=== PATIENT | female | born 1955 | race Caucasian/White ===

== ENCOUNTER 2022-04-07 12:55 | Observation (INO) ==
[2022-04-07] MEDS ORDERED: KETOROLAC TROMETHAMINE 15 MG/ML VIAL IV STA ×2 (14:38→14:59)
[2022-04-07] MEDS ORDERED: SODIUM CHLORIDE 0.9% 1000ML 1,000 ML IV ONE (14:38)
[2022-04-07] MEDS ORDERED: ACETAMINOPHEN 1,000 MG/100 ML VIAL IV STA (14:38)
[2022-04-07] MEDS ORDERED: SODIUM CHLORIDE 0.9% 1000ML 1,000 ML IV STA (14:59)
[2022-04-07] MEDS ORDERED: ONDANSETRON INJ 2 MG/ML 2 ML VIAL IV STA ×2 (14:59→20:18)
--- NOTE | 2022-04-07 15:04 | Emergency Department Note ---
Impression & Plan Strain of lumbar region, Acute Lyme disease ED Provider Note NAME: YIFAN YANG AGE: 66 SEX: F : 1955 ARRIVES VIA: Walk-In INFORMANT: Patient, ED PROVIDER(S): Jorge Benitez DO CHIEF COMPLAINT: Back pain HPI: The patient is a 66-year-old female who presented to the emergency department as a follow-up from last evening. The patient was seen in our facility. She was treated for left-sided back pain. She was noted to have a large rash and at that time was diagnosed with Lyme disease after laboratory testing confirmed a positive screen for Lyme in the patient's history physical exam and other findings seem to be consistent with this. She is been having some symptoms over the course the last few weeks which began with headache. It was a sharp lancinating type of headache on the right side of the scalp. She was treated with steroids and was feeling much better on reevaluation. She then started noticing back pain which was in the left flank. She had a work-up which included a plain CT of the abdomen and pelvis to look for renal calculi. There is an abnormality noted on the CT in the liver so a repeat scan with IV contrast was also done. No acute abnormality was noted that would explain the patient's back pain. Specifically no bowel obstruction. She returns with her daughter today because of worsening and ongoing pain. She has been taking her outpatient medication. She denies having any vomiting. She denies having any headache at this time. She denies having any chest pain or difficulty breathing. The pain is over the left flank and does not worsen with breathing. She does not have a history of cancer. She has had some weight loss according to her daughter. ROS: See above HPI for pertinent positives & negatives. A total of 10 systems re viewed and were otherwise negative. PAST MEDICAL HISTORY: See Below PAST SURGICAL HISTORY: See Below FAMILY HISTORY: See Below SOCIAL HISTORY: See Below HOME MEDICATIONS: See Below ALLERGIES: See Below VITALS: See Below PHYSICAL EXAMINATION: GENERAL: Is awake and alert. She appears to be very anxious and is walking around the room because of discomfort. EYES: The conjunctivae are clear. The pupils are round and reactive. EARS, NOSE, MOUTH AND THROAT: The nose is without any evidence of any deformity. NECK: The neck is nontender and supple. RESPIRATORY: Normal respiratory effort is noted there is no evidence of wheezing rhonchi or rales CARDIOVASCULAR: Regular rate and rhythm noted there no murmurs rubs or gallops normal S1 normal S2. GASTROINTESTINAL: The abdomen is soft. Abdomen is nontender. BACK: No midline tenderness noted to percussion. There was left CVA tenderness noted to percussion. Range of motion does appear intact. MUSCULOSKELETAL/EXTREMITIES: There is no evidence of gross deformity full range of motion is noted in the hips and shoulders. SKIN: Multiple large target-like lesions were noted over the left flank and the left upper abdomen. There is no pedal edema. NEUROLOGIC: Patient is awake alert and oriented x3 strength is symmetric patellar reflexes are 2+ bilaterally MEDICAL DECISION MAKING: The patient is a 66-year-old female who presented to the emergency department for an evaluation of back pain. The patient describes left-sided back pain which was reproducible on physical exam. The patient was treated with pain m edication. She was reevaluated multiple times. She was very concerned that there could be some other pathology other than the Lyme disease that was diagnosed last evening. For this reason MRI was obtained of the thoracic and lumbar spine. No acute disease was noted that would explain the patient's pain. The patient appeared to be in significant pain ongoing despite being treated with multiple doses of pain medication. For this reason I [facility] have agreed to evaluate the patient in the emergency department for further management and disposition. Triage Nursing notes reviewed. Prior medical records reviewed Vital Signs: reviewed and remarkable for no significant abnormalities Differential diagnosis: Musculoskeletal, disc herniation, fracture, metastatic disease, cord compression, discitis, sciatica, cauda equina, infection, aortic disease, renal colic, gastrointestinal, as well as other pathologies. ER treatment provided: See below Diagnostics interpreted by me: ECG: EKG was obtained in the emergency department. My interpretation is normal sinus rhythm at 75 bpm. There is no ectopy. There was no acute ST segment abnormalities noted. This was compared to a tracing from April 07, 2022. Earlier this morning. No changes were noted. Cardiac Monitoring: An order was placed for continuous cardiac monitoring. The monitor shows a rate of 79 bpm with sinus rhythm. Laboratory studies: As stated above and show below. Imaging studies: See below Consultation(s): I discussed this case with Dr. 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 [place] 05/10/21 Family History Mother Family history of lung cancer Atrial fibrillation Gallbladder disease Lung cancer Father Cardiac disorder Myelodysplasia (myelodysplastic syndrome) Sister Gallbladder disease Myocardial infarction Aunt Breast cancer great aunt Denies family history of Ovarian cancer Prostate cancer Diabetes Hypertension Stroke Social History Smoking Status: Never smoker Age Quit Using Tobacco: 20; Second Hand Exposure: No; Hx Alcohol Use: No Hx Substance Use: No Preferred Language: Upper Sorbian Communication Ability: Effective Visual Impairment: No Limitations Hearing Ability: Normal Finance Business Partner Required: No Beliefs That Will Affect Care: None marital status: Current Living Situation: Family Current Living Situation Comment: LIVES WITH DAUGHTER, SON IN LAW AND 3 KIDS current occupational status: employed current occupation: MA How many Children do You have: 2 Feels Safe at Home: Yes Childhood Exposure to Second-Hand Smoke: Yes caffeine: No Dental Care, Regularly: Yes Physical Activity Frequency: 5-6 Times per Week Seatbelt Use: always Sunscreen Use: Yes Assistive Devices: None Allergies Allergies Allergy/AdvReac Type Severity Reaction Status Date / Time Penicillins Allergy Intermediate rash/hives Verified 04/07/22 21:32 Home Meds Home Medications Medication Instructions Recorded Confirmed multivitamin 1 tab PO QAM 04/15/21 04/07/22 conj estrogen-medroxyprogesterone 0.5 tab PO QAM 06/20/22 06/20/22 0.625 mg-2.5 mg tablet (Prempro) Previous Rx's Medication Instructions Recorded doxycycline hyclate 100 mg tablet 100 mg PO BID 21 Days #42 tab 04/07/22 Results & Data (ED) Vital Signs Vital Signs - 24 hr 04/07/22 13:04 04/07/22 14:44 04/07/22 15:15 Temperature 36.5 C Temperature Source Temporal Artery Scan Pulse Rate 92 H Pulse Rate [Right Finger] Respiratory Rate 18 Respiratory Effort / Characteristics Non-Labored Respiratory Depth Normal Respiratory Pattern Regular Blood Pressure 126/84 Blood Pressure [Left Arm] Blood Pressure Mean 98 Blood Pressure Mean [Left Arm] Blood Pressure Position [Left Arm] Pulse Oximetry 97 97 97 Oxygen Delivery Method Room Air Room Air Room Air Sepsis Recent Fever Within 48 Hours No Sepsis New/Unexplained Change in Mental Status No Sepsis Action Taken by Nursing No Action Required 04/07/22 15:48 04/07/22 17:00 04/07/22 19:00 Temperature Temperature Source Pulse Rate Pulse Rate [Right Finger] 84 78 75 Respiratory Rate 20 20 18 Respiratory Effort / Characteristics Non-Labored Spontaneous Non-Labored Spontaneous Respiratory Depth Normal Normal Respiratory Pattern Regular Regular Blood Pressure Blood Pressure [Left Arm] 130/68 126/71 134/77 Blood Pressure Mean Blood Pressure Mean [Left Arm] 88 89 96 Blood Pressure Position [Left Arm] Lying Pulse Oximetry 98 98 99 Oxygen Delivery Method Room Air Room Air Room Air Sepsis Recent Fever Within 48 Hours Sepsis New/Unexplained Change in Mental Status Sepsis Action Taken by Nursing 04/07/22 21:00 04/07/22 23:18 Temperature Temperature Source Pulse Rate Pulse Rate [Right Finger] 79 81 Respiratory Rate 20 20 Respiratory Effort / Characteristics Non-Labored Respiratory Depth Normal Respiratory Pattern Regular Blood Pressure Blood Pressure [Left Arm] 132/72 142/76 H Blood Pressure Mean Blood Pressure Mean [Left Arm] 92 98 Blood Pressure Position [Left Arm] Lying Pulse Oximetry 93 98 Oxygen Delivery Method Room Air Room Air Sepsis Recent Fever Within 48 Hours Sepsis New/Unexplained Change in Mental Status Sepsis Action Taken by Jail Medications Current Medication List: was personally reviewed by me Laboratory Data Attestation: I reviewed the patient's lab results. Result diagrams: 04/08/22 08:00 04/08/22 08:00 Lab Results 04/07/22 04/07/22 04/07/22 Range/Units 15:12 15:12 15:12 WBC 13.85 H (4.8-10.8) K/uL RBC 4.63 (4.2-5.4) M/uL Hgb 15.6 (12.0-16.0) g/dL Hct 43.9 (37-47) % MCV 94.8 (80-100) fL MCH 33.7 (25-34) pg MCHC 35.5 (32-36) g/dL RDW Std Deviation 42.4 (36.4-46.3) fL RDW Coeff of Fredo 12.4 (11.5-14.5) % Plt Count 459 H (130-400) K/uL MPV 9.4 (7.4-10.4) fL Immature Gran % (Auto) 0.3 % Neut % (Auto) 80.0 % Lymph % (Auto) 10.8 % Webb % (Auto) 7.4 % Eos % (Auto) 1.2 % Baso % (Auto) 0.3 % Neut # (Auto) 11.09 H (1.4-6.5) K/uL Lymph # (Auto) 1.50 (1.2-3.4) K/uL Webb # (Auto) 1.02 H (0.11-0.59) K/uL Eos # (Auto) 0.16 (0-0.5) K/uL Baso # (Auto) 0.04 (0-0.2) K/uL Immature Gran # (Auto) 0.04 H (0.00-0.02) K/uL ESR 11 (0-30) mm/hr Sodium 131 L (136-145) mmol/L Potassium 4.1 (3.5-5.1) mmol/L Chloride 95 L (98-107) mmol/L Carbon Dioxide 29 (21-32) mmol/L Anion Gap 7 (3-11) BUN 15 (6-23) mg/dl Creatinine 0.98 (0.6-1.2) mg/dl Est Cr Clr Drug Dosing 42.2 ml/min Est GFR ( Amer) 70.7 ml/min Est GFR (Non-Af Amer) 61.0 ml/min BUN/Creatinine Ratio 15.3 (10-20) Glucose 94 (70-99(Fasting)) mg/dl Calcium 9.1 (8.5-10.1) mg/dl Phosphorus 3.8 (2.5-4.9) mg/dl Magnesium 1.8 (1.7-2.4) mg/dl Total Bilirubin 1.0 (0.2-1.0) mg/dl AST 16 (13-39) U/L ALT 15 (7-52) U/L Alkaline Phosphatase 59 (34-104) U/L Total Creatine Kinase 48 (26-192) U/L Troponin I High Sens 4.9 (0-14) pg/ml C-Reactive Protein 0.99 H (0-0.5) mg/dl Total Protein 6.8 (6.0-8.3) gm/dl Albumin 4.0 (3.4-5.0) gm/dl Globulin 2.8 (2.5-4.0) gm/dl Albumin/Globulin Ratio 1.4 (0.9-2) Lipase 48 (11-82) U/L SARS-CoV-2, RNA, NAAT (NEGATIVE) 04/07/22 Range/Units 21:05 WBC (4.8-10.8) K/uL RBC (4.2-5.4) M/uL Hgb (12.0-16.0) g/dL Hct (37-47) % MCV (80-100) fL MCH (25-34) pg MCHC (32-36) g/dL RDW Std Deviation (36.4-46.3) fL RDW Coeff of Fredo (11.5-14.5) % Plt Count (130-400) K/uL MPV (7.4-10.4) fL Immature Gran % (Auto) % Neut % (Auto) % Lymph % (Auto) % Webb % (Auto) % Eos % (Auto) % Baso % (Auto) % Neut # (Auto) (1.4-6.5) K/uL Lymph # (Auto) (1.2-3.4) K/uL Webb # (Auto) (0.11-0.59) K/uL Eos # (Auto) (0-0.5) K/uL Baso # (Auto) (0-0.2) K/uL Immature Gran # (Auto) (0.00-0.02) K/uL ESR (0-30) mm/hr Sodium (136-145) mmol/L Potassium (3.5-5.1) mmol/L Chloride (98-107) mmol/L Carbon Dioxide (21-32) mmol/L Anion Gap (3-11) BUN (6-23) mg/dl Creatinine (0.6-1.2) mg/dl Est Cr Clr Drug Dosing ml/min Est GFR ( Amer) ml/min Est GFR (Non-Af Amer) ml/min BUN/Creatinine Ratio (10-20) Glucose (70-99(Fasting)) mg/dl Calcium (8.5-10.1) mg/dl Phosphorus (2.5-4.9) mg/dl Magnesium (1.7-2.4) mg/dl Total Bilirubin (0.2-1.0) mg/dl AST (13-39) U/L ALT (7-52) U/L Alkaline Phosphatase (34-104) U/L Total Creatine Kinase (26-192) U/L Troponin I High Sens (0-14) pg/ml C-Reactive Protein (0-0.5) mg/dl Total Protein (6.0-8.3) gm/dl Albumin (3.4-5.0) gm/dl Globulin (2.5-4.0) gm/dl Albumin/Globulin Ratio (0.9-2) Lipase (11-82) U/L SARS-CoV-2, RNA, NAAT NEGATIVE (NEGATIVE) Administered Medications Doxycycline Hyclate (Doxycycline Hyclate 100 Mg Cap) 100 mg PO BID [facility] Stop: 04/18/22 08:59 Last Admin: 04/08/22 09:17 Dose: 100 mg Documented by: [id number] Heparin Sodium (Porcine) (Heparin Sod 5,000 Unit/0.5 Ml Vial) 5,000 units SQ Q12 [facility]INE Stop: 05/08/22 08:59 Last Admin: 04/08/22 09:17 Dose: 5,000 units Documented by: [id number] Ceftriaxone Sodium 1,000 mg/ (Dextrose) 60 mls @ 100 mls/hr IV Q24H CHRISTINE; Protocol Stop: 04/18/22 08:59 Last Admin: 04/08/22 09:15 Dose: 100 mls/hr Documented by: [id number] Lactated Ringer's (Lr) 1,000 mls @ 125 mls/hr IV .Q8H [facility] Stop: 05/08/22 02:29 Last Admin: 04/08/22 04:07 Dose: 125 mls/hr Documented by: [id number] Miscellaneous ([Prempro] 0.625-2.5 Mg - Order Awaiting Action) 1 ea N/A QS [facility] Stop: 05/08/22 07:59 Last Admin: 04/08/22 07:18 Dose: Not Given Documented by: [id number] Multivitamins (Multivitamin Tab) 1 tab PO QAM [facility]INE Stop: 05/08/22 08:59 Last Admin: 04/08/22 09:17 Dose: 1 tab Documented by: [id number] Discontinued Medications Hydrocodone Bitart/Acetaminophen (Hydrocodone/Acetamophen 5/325mg Tab) 1 tab PO Q4H PRN PRN Reason: Moderate Pain Stop: 04/22/22 01:13 Last Admin: 04/08/22 06:31 Dose: 1 tab Documented by: [id number] Hydrocodone Bitart/Acetaminophen (Hydrocodone/Acetamophen 5/325mg Tab) Confirm Administered Dose 1 tab PO .STK-MED ONE Stop: 04/08/22 02:10 Last Admin: 04/08/22 02:12 Dose: 1 tab Documented by: [id number] Bisacodyl (Bisacodyl 10 Mg Supp) [address] NOW STA Stop: 04/08/22 02:27 Last Admin: 04/08/22 04:09 Dose: 10 mg Documented by: [id number] Doxycycline Hyclate (Doxycycline Hyclate 100 Mg Cap) 100 mg PO NOW STA Stop: 04/07/22 21:49 Last Admin: 04/07/22 23:15 Dose: 100 mg Documented by: [id number] Hydromorphone HCl (Hydromorphone Inj 1 Mg/Ml Syringe) 1 mg IV Q15M PRN PRN Reason: Pain Stop: 04/21/22 14:58 Last Admin: 04/07/22 20:57 Dose: 1 mg Documented by: [id number] Admin: 04/07/22 15:26 Dose: 1 mg Documented by: [id number] Sodium Chloride (Nss 1000ml) 1,000 mls @ 999 mls/hr IV .Q1H1M ONE Stop: 04/07/22 15:38 Last Admin: 04/07/22 15:44 Dose: Not Given Documented by: [id number] Acetaminophen (Ofirmev) 1,000 mg in 100 mls @ 400 mls/hr IV NOW STA Stop: 04/07/22 14:52 Last Admin: 04/07/22 15:43 Dose: Not Given Documented by: [id number] Sodium Chloride (Nss 1000ml) 1,000 mls @ 999 mls/hr IV .Q1H1M STA Stop: 04/07/22 15:59 Last Infusion: 04/07/22 17:12 Dose: 0 mls/hr Documented by: [id number] Admin: 04/07/22 15:26 Dose: 999 mls/hr Documented by: [id number] Promethazine HCl (Phenergan) 12.5 mg in 50.5 mls @ 202 mls/hr IV NOW STA Stop: 04/07/22 17:00 Last Infusion: 04/07/22 17:12 Dose: 0 mls/hr Documented by: [id number] Admin: 04/07/22 16:53 Dose: 202 mls/hr Documented by: [id number] Ceftriaxone Sodium (Rocephin) 1,000 mg in 50 mls @ 100 mls/hr IV NOW STA Stop: 04/07/22 22:17 Last Infusion: 04/08/22 01:36 Dose: 100 mls/hr Documented by: [id number] Admin: 04/07/22 23:15 Dose: 100 mls/hr Documented by: [id number] Ioversol (Optiray 320 125ml) 120 ml IV ONCE ONE Stop: 04/07/22 23:05 Last Admin: 04/07/22 23:06 Dose: 120 ml Documented by: [id number] Ketorolac Tromethamine (Ketorolac Tromethamine 15 Mg/Ml Vial) 15 mg IV NOW STA Stop: 04/07/22 14:39 Last Admin: 04/07/22 15:44 Dose: Not Given Documented by: [id number] Ketorolac Tromethamine (Ketorolac Tromethamine 15 Mg/Ml Vial) 10 mg IV NOW STA Stop: 04/07/22 15:00 Last Admin: 04/07/22 15:26 Dose: 10 mg Documented by: [id number] Ondansetron HCl (Ondansetron Inj 2 Mg/Ml 2 Ml Vial) 4 mg IV NOW STA Stop: 04/07/22 15:00 Last Admin: 04/07/22 15:26 Dose: 4 mg Documented by: [id number] Ondansetron HCl (Ondansetron Inj 2 Mg/Ml 2 Ml Vial) 4 mg IV NOW STA Stop: 04/07/22 20:19 Last Admin: 04/07/22 20:56 Dose: 4 mg Documented by: [id number] Ondansetron HCl (Ondansetron Inj 2 Mg/Ml 2 Ml Vial) Confirm Administered Dose 4 mg .ROUTE .STK-MED ONE Stop: 04/08/22 02:11 Last Admin: 04/08/22 02:11 Dose: 4 mg Documented by: [id number] Imaging Data Radiologist's Impression: Lumbar Spine MRI 04/07/22 14:59 MR lumbar spine wo con CLINICAL HISTORY: left sided pain with anterior radiation for 1.5 weeks, no inciting injury TECHNIQUE: Multiplanar sequences through the lumbar spine were obtained, without intravenous contrast. Comparison: Comparison is made to CT abdomen pelvis 04/07/2022 FINDINGS: The alignment is anatomical. Degenerative changes are noted in the discs and v ertebral bodies. L1-L2: No significant abnormality. L2-L3: Degenerative changes are seen. There is a broad-based posterior disc bulge with mild bilateral neural foraminal stenosis and no canal stenosis. L3-L4: Broad-based posterior disc bulge is seen with no significant stenosis. L4-L5: No significant abnormality. L5-S1: No significant abnormality. The spinal ligaments are intact, without evidence of disruption or abnormal signal intensity. The spinal cord is normal in signal intensity and there is no evidence of cord contusion. There is no evidence of an extradural, intradural, extramedullary or intramedullary lesion. Visualized soft tissues are normal. IMPRESSION: No significant canal stenosis, mild bilateral neuroforaminal stenosis. No T2 hyperintensity to suggest demyelinating disease. ACT 112: Negative or not required by law. Electronically signed by: Anibal Molina M.D. 04/07/2022 7:51 PM Thoracic Spine MRI 04/07/22 15:27 MR thoracic spine wo con CLINICAL HISTORY: pain left-sided spinal pain with anterior radiation TECHNIQUE: Multiplanar sequences through the thoracic spine were obtained, without intravenous contrast. Comparison: None available at the time of this dictation. FINDINGS: The alignment is anatomical. Degenerative changes are noted in the discs and vertebral bodies. The spinal canal and neural foramina are patent. The spinal ligaments are intact, without evidence of disruption or abnormal signal intensity. The spinal cord is normal in signal intensity and there is no evidence of cord contusion. There is no evidence of an extradural, intradural, extramedullary or intramedullary lesion. Visualized soft tissues are normal. IMPRESSION: Mild degenerative disc disease without evidence of canal or neuroforaminal stenosis. No signal abnormality to suggest demyelinating lesion. ACT 112: Negative or not required by law. Electronically signed by: Anibal Molina M.D. 04/07/2022 8:03 PM Discharge Plan Visit Data Chief Complaint: Back Injury/Pain Stated Complaint: BACK PAIN, CAN'T LAY DOWN ED Provider: Jorge Benitez Discharge Problem: Strain of lumbar region, Acute Lyme disease Patient Disposition: Admitted As Inpatient Discharge Instructions Interventions: ED Discharge Assessment Last Done: 04/08/22 00:57 Discharge Problem: Strain of lumbar region Qualifiers: Encounter type: subsequent encounter Qualified Code(s): S39.012D - Strain of muscle, fascia and tendon of lower back, subsequent encounter
[2022-04-07 15:21] LABS: Basophils # (auto) 0.04 K/uL (0-0.2); Basophils % (auto) 0.3 %; Eosinophils # (auto) 0.16 K/uL (0-0.5); Eosinophils % (auto) 1.2 %; Hematocrit (blood only) 43.9 % (37-47); Hemoglobin 15.6 g/dL (12.0-16.0); Immature Granulocytes # (auto) 0.04 K/uL (0.00-0.02); Immature Granulocytes % (auto) 0.3 %; Lymphocytes % (auto) 10.8 %; Mean Corpuscular Hemoglobin 33.7 pg (25-34); Mean Corpuscular Hgb Conc 35.5 g/dL (32-36); Mean Corpuscular Volume 94.8 fL (80-100); Mean Platelet Volume 9.4 fL (7.4-10.4); Monocytes # (auto) 1.02 K/uL (0.11-0.59); Monocytes % (auto) 7.4 %; Neutrophils # (auto) 11.09 K/uL (1.4-6.5); Platelet Count 459 K/uL (130-400); RDW Coefficient of Variation 12.4 % (11.5-14.5); RDW Standard Deviation 42.4 fL (36.4-46.3); Red Blood Count 4.63 M/uL (4.2-5.4); White Blood Count 13.85 K/uL (4.8-10.8)
[2022-04-07] MEDS: HYDROmorphone INJ 1 MG/ML SYRINGE IV PRN ×2 (15:26→20:57)
[2022-04-07 15:44] LABS: Albumin Globulin Ratio 1.4 (0.9-2); BUN Creatinine Ratio 15.3 (10-20); C Reactive Protein 0.99 mg/dl (0-0.5); Calcium 9.1 mg/dl (8.5-10.1); Creatinine Clr Calc Pharmacy 42.2 ml/min; Est GFR (African American) 70.7 ml/min; Globulin 2.8 gm/dl (2.5-4.0); Magnesium 1.8 mg/dl (1.7-2.4); Phosphorus 3.8 mg/dl (2.5-4.9); Potassium 4.1 mmol/L (3.5-5.1); Total Protein 6.8 gm/dl (6.0-8.3)
[2022-04-07 15:49] LABS: Troponin I High Sensitivity 4.9 pg/ml (0-14)
[2022-04-07] MEDS ORDERED: PROMETHAZINE 12.5 MG/50.5 ML BAG IV STA (16:46)
--- NOTE | 2022-04-07 19:53 | Magnetic Resonance Report ---
MR lumbar spine wo con CLINICAL HISTORY: left sided pain with anterior radiation for 1.5 weeks, no inciting injury TECHNIQUE: Multiplanar sequences through the lumbar spine were obtained, without intravenous contrast . Comparison: Comparison is made to CT abdomen pelvis 04/07/2022 FINDINGS: The alignment is anatomical. Degenerative changes are noted in the discs and vertebral bodies. L1-L2: No significant abnormality. L2-L3: Degenerative changes are seen. There is a broad-based posterior disc bulge with mild bilateral neural foraminal stenosis and no canal stenosis. L3-L4: Broad-based posterior disc bulge is seen with no significant stenosis. L4-L5: No significant abnormality. L5-S1: No significant abnormality. The spinal ligaments are intact, without evidence of disruption or abnormal signal intensity. The spi nal cord is normal in signal intensity and there is no evidence of cord contusion. There is no eviden ce of an extradural, intradural, extramedullary or intramedullary lesion. Visualized soft tissues are normal. IMPRESSION: No significant canal stenosis, mild bilateral neuroforaminal stenosis. No T2 hyperintensity to sugges t demyelinating disease. ACT 112: Negative or not required by law. Electronically signed by: Anibal Molina M.D. 04/07/2022 7:51 PM
--- NOTE | 2022-04-07 20:06 | Magnetic Resonance Report ---
MR thoracic spine wo con CLINICAL HISTORY: pain left-sided spinal pain with anterior radiation TECHNIQUE: Multiplanar sequences through the thoracic spine were obtained, without intravenous contra st. Comparison: None available at the time of this dictation. FINDINGS: The alignment is anatomical. Degenerative changes are noted in the discs and vertebral bodies. The spinal canal and neural foramina are patent. The spinal ligaments are intact, without evidence of disruption or abnormal signal intensity. The spi nal cord is normal in signal intensity and there is no evidence of cord contusion. There is no eviden ce of an extradural, intradural, extramedullary or intramedullary lesion. Visualized soft tissues are normal. IMPRESSION: Mild degenerative disc disease without evidence of canal or neuroforaminal stenosis. No signal abnorm ality to suggest demyelinating lesion. ACT 112: Negative or not required by law. Electronically signed by: Anibal Molina M.D. 04/07/2022 8:03 PM
[2022-04-07] MEDS ORDERED: cefTRIAXone SODIUM 1,000 MG/50 ML BAG IV STA (21:48)
[2022-04-07] MEDS ORDERED: DOXYCYCLINE HYCLATE 100 MG CAP PO STA (21:48)
[2022-04-07] MEDS ORDERED: OPTIRAY 320 125ml IV ONE (23:04)
--- NOTE | 2022-04-08 00:12 | History & Physical Report ---
Date of Service April 08, 2022 Assessment & Plan (1) Acute Lyme disease: Plan: Ceftriaxone 1 g IV daily Doxycycline 100 mg p.o. twice daily (2) Left-sided thoracic back pain: Plan: Unclear etiology Negative MRI of thoracolumbar spine Negative CT scan of abdomen and pelvis Negative CTA chest for PE Uncommon for Lyme to cause this type of pain. Question referred pain from constipation Acetaminophen 650 mg p.o. every 6 hours as needed mild pain or fever Lockhart 5/325, 1 p.o. every 4 hours as needed moderate pain Toradol 15 mg IV every 6 hours as needed severe pain (3) Constipation: Plan: Dulcolax suppository now and daily as needed LR at high 25 mils per hour History of Present Illness Chief Complaint: The patient presents to the emergency department with complaint of persistent left lower back pain, for which she was seen the previous evening at the ED, where she was noted to have an erythema chronicum migrans rash consistent with Lyme disease Primary Care Provider: Adam Bear MD The patient is a 66-year-old female with a past medical history of osteopenia, atypical ductal hyperplasia of breast, atypical lobular hyperplasia of right breast, and lumbar strain. She reports that the symptoms began a few weeks ago, prior to going on a recent trip. She had also presented with a headache at that time, which had improved with a course of steroids. Work-up in the emergency department include the following imaging: CT scan of abdomen and pelvis showed a small amount of fluid within the pelvis/. Follow-up CT scan abdomen pelvis with contrast showed a 2.5 cm segment subcapsular lesion representing hemangioma, calcified granulomas within the spleen. This evening MRI of lumbar spine and thoracic spine were both negative. CT angiography chest PE protocol was negative for PE. Due to the intractability of the pain, patient was referred for admission for further assessment and pain control. Allergies Allergy/AdvReac Type Severity Reaction Status Date / Time Penicillins Allergy Intermediate rash/hives Verified 04/07/22 21:32 Home Medications Medication Instructions Recorded Confirmed Type multivitamin 1 tab PO QAM 04/15/21 04/07/22 History conj estrogen-medroxyprogesterone 0.5 tab PO QAM 04/07/22 04/07/22 History 0.625 mg-2.5 mg tablet (Prempro) doxycycline hyclate 100 mg tablet 100 mg PO BID 21 Days #42 tab 04/07/22 04/07/22 Rx Past Med/Surg History Medical History Atypical lobular hyperplasia (ALH) of right breast Bowel obstruction 2014 Surgical History H/O unilateral oophorectomy History of appendectomy History of colonoscopy 10/2014 Repeat 10 yrs History of dental surgery NO GENERAL ANESTHESIA FOR History of esophagogastroduodenoscopy (EGD) History of exploratory laparotomy WITH APPENDECTOMY History of surgery on extremity R LEG ORIF/HARDWARE SINCE REMOVED Status post right breast lumpectomy (05/10/21) Right Breast Lumpectomy with Localization using [place]ice [employer] Operator Marker Dr. [place] 05/10/21 Family History Mother Family history of lung cancer Atrial fibrillation Gallbladder disease Lung cancer Father Cardiac disorder Myelodysplasia (myelodysplastic syndrome) Sister Gallbladder disease Myocardial infarction Aunt Breast cancer great aunt Denies family history of Ovarian cancer Prostate cancer Diabetes Hypertension Stroke Social History Smoking Status: Never smoker Age Quit Using Tobacco: 20; Second Hand Exposure: No; Hx Alcohol Use: No Hx Substance Use: No Preferred Language: Upper Sorbian Communication Ability: Effective Visual Impairment: No Limitations Hearing Ability: Normal Filler Shredder Helper Required: No Beliefs That Will Affect Care: None marital status: Current Living Situation: Family Current Living Situation Comment: LIVES WITH DAUGHTER, SON IN LAW AND 3 KIDS current occupational status: employed current occupation: MA How many Children do You have: 2 Feels Safe at Home: Yes Safety Concerns: Feels Safe At This Time Childhood Exposure to Second-Hand Smoke: Yes caffeine: No Dental Care, Regularly: Yes Physical Activity Frequency: 5-6 Times per Week Seatbelt Use: always Sunscreen Use: Yes Assistive Devices: None Review of Systems Review of Systems: The patient denies chest pain, palpitations, shortness of breath, dyspnea on exertion, cough, lower extremity swelling, sore throat, fevers, chills, sweats, weight change, fatigue, nausea, vomiting, diarrhea, blood in urine or stool, dysuria, urinary frequency or urgency, lightheadedness, dizziness, headache, memory loss, loss of consciousness, abnormal bruising or bleeding, imbalance, focal or generalized weakness, numbness or tingling in arms or legs, generalized arthralgias or myalgias, neck pain, or night sweats. The review of systems is otherwise negative other than for that already noted above, and at least 10 systems have been reviewed. Physical Exam Physical Exam: The patient is awake, alert and oriented 3, well developed and well nourished, normocephalic and atraumatic, lying in bed and in no acute distress. HEENT--PERRL, EOMI, mucous membranes and oropharynx dry. Neck--supple. No JVD. No bruits. Thyroid normal, trachea midline, no adenopathy. Heart--normal S1 and S2. No murmurs, rubs or gallops. Lungs--clear bilaterally, no respiratory distress, no accessory muscle use. Abdomen--normal bowel sounds and soft. Nontender. Nondistended, no hernias or masses, no organomegaly. Extremities--no cyanosis or clubbing. No edema. There are good distal pulses b/l. Dermatologic--rash as noted in ED records Neurologic--cranial nerves II through XII grossly intact. Rheumatologic--normal range of motion. Psychiatric--normal affect. Results & Data Results & Data ([facility]) Vital Signs (Past 12 Hours) Vital Signs Temp Pulse Pulse Resp BP BP Pulse Ox 04/07/22 23:18 81 20 142/76 H 98 04/07/22 21:00 79 20 132/72 93 04/07/22 19:00 75 18 134/77 99 04/07/22 17:00 78 20 126/71 98 04/07/22 15:48 84 20 130/68 98 04/07/22 15:15 97 04/07/22 14:44 97 04/07/22 13:04 36.5 C 92 H 18 126/84 97 Laboratory Results Laboratory Results WBC 13.85 K/uL (4.8-10.8) H 04/07/22 15:12 RBC 4.63 M/uL (4.2-5.4) 04/07/22 15:12 Hgb 15.6 g/dL (12.0-16.0) 04/07/22 15:12 Hct 43.9 % (37-47) 04/07/22 15:12 MCV 94.8 fL (80-100) 04/07/22 15:12 MCH 33.7 pg (25-34) 04/07/22 15:12 MCHC 35.5 g/dL (32-36) 04/07/22 15:12 RDW Std Deviation 42.4 fL (36.4-46.3) 04/07/22 15:12 RDW Coeff of Fredo 12.4 % (11.5-14.5) 04/07/22 15:12 Plt Count 459 K/uL (130-400) H 04/07/22 15:12 MPV 9.4 fL (7.4-10.4) 04/07/22 15:12 Immature Gran % (Auto) 0.3 % 04/07/22 15:12 Neut % (Auto) 80.0 % 04/07/22 15:12 Lymph % (Auto) 10.8 % 04/07/22 15:12 [place] % (Auto) 7.4 % 04/07/22 15:12 Eos % (Auto) 1.2 % 04/07/22 15:12 Baso % (Auto) 0.3 % 04/07/22 15:12 Neut # (Auto) 11.09 K/uL (1.4-6.5) H 04/07/22 15:12 Lymph # (Auto) 1.50 K/uL (1.2-3.4) 04/07/22 15:12 [place] # (Auto) 1.02 K/uL (0.11-0.59) H 04/07/22 15:12 Eos # (Auto) 0.16 K/uL (0-0.5) 04/07/22 15:12 Baso # (Auto) 0.04 K/uL (0-0.2) 04/07/22 15:12 Immature Gran # (Auto) 0.04 K/uL (0.00-0.02) H 04/07/22 15:12 ESR 11 mm/hr (0-30) 04/07/22 15:12 Sodium 131 mmol/L (136-145) L 04/07/22 15:12 Potassium 4.1 mmol/L (3.5-5.1) 04/07/22 15:12 Chloride 95 mmol/L (98-107) L 04/07/22 15:12 Carbon Dioxide 29 mmol/L (21-32) 04/07/22 15:12 Anion Gap 7 (3-11) 04/07/22 15:12 BUN 15 mg/dl (6-23) 04/07/22 15:12 Creatinine 0.98 mg/dl (0.6-1.2) 04/07/22 15:12 Est Cr Clr Drug Dosing 42.2 ml/min 04/07/22 15:12 Est GFR ( Amer) 70.7 ml/min 04/07/22 15:12 Est GFR (Non-Af Amer) 61.0 ml/min 04/07/22 15:12 BUN/Creatinine Ratio 15.3 (10-20) 04/07/22 15:12 Glucose 94 mg/dl (70-99(Fasting)) 04/07/22 15:12 Calcium 9.1 mg/dl (8.5-10.1) 04/07/22 15:12 Phosphorus 3.8 mg/dl (2.5-4.9) 04/07/22 15:12 Magnesium 1.8 mg/dl (1.7-2.4) 04/07/22 15:12 Total Bilirubin 1.0 mg/dl (0.2-1.0) 04/07/22 15:12 AST 16 U/L (13-39) 04/07/22 15:12 ALT 15 U/L (7-52) 04/07/22 15:12 Alkaline Phosphatase 59 U/L (34-104) 04/07/22 15:12 Total Creatine Kinase 48 U/L (26-192) 04/07/22 15:12 Troponin I High Sens 4.9 pg/ml (0-14) 04/07/22 15:12 C-Reactive Protein 0.99 mg/dl (0-0.5) H 04/07/22 15:12 Total Protein 6.8 gm/dl (6.0-8.3) 04/07/22 15:12 Albumin 4.0 gm/dl (3.4-5.0) 04/07/22 15:12 Globulin 2.8 gm/dl (2.5-4.0) 04/07/22 15:12 Albumin/Globulin Ratio 1.4 (0.9-2) 04/07/22 15:12 Lipase 48 U/L (11-82) 04/07/22 15:12 SARS-CoV-2, RNA, NAAT NEGATIVE (NEGATIVE) 04/07/22 21:05 Impressions Lumbar Spine MRI 04/07/22 14:59 MR lumbar spine wo con CLINICAL HISTORY: left sided pain with anterior radiation for 1.5 weeks, no inciting injury TECHNIQUE: Multiplanar sequences through the lumbar spine were obtained, without intravenous contrast. Comparison: Comparison is made to CT abdomen pelvis 04/07/2022 FINDINGS: The alignment is anatomical. Degenerative changes are noted in the discs and vertebral bodies. L1-L2: No significant abnormality. L2-L3: Degenerative changes are seen. There is a broad-based posterior disc bulge with mild bilateral neural foraminal stenosis and no canal stenosis. L3-L4: Broad-based posterior disc bulge is seen with no significant stenosis. L4-L5: No significant abnormality. L5-S1: No significant abnormality. The spinal ligaments are intact, without evidence of disruption or abnormal signal intensity. The spinal cord is normal in signal intensity and there is no evidence of cord contusion. There is no evidence of an extradural, intradural, extramedullary or intramedullary lesion. Visualized soft tissues are normal. IMPRESSION: No significant canal stenosis, mild bilateral neuroforaminal stenosis. No T2 hyperintensity to suggest demyelinating disease. ACT 112: Negative or not required by law. Electronically signed by: Anibal Molina M.D. 04/07/2022 7:51 PM Thoracic Spine MRI 04/07/22 15:27 MR thoracic spine wo con CLINICAL HISTORY: pain left-sided spinal pain with anterior radiation TECHNIQUE: Multiplanar sequences through the thoracic spine were obtained, without intravenous contrast. Comparison: None available at the time of this dictation. FINDINGS: The alignment is anatomical. Degenerative changes are noted in the discs and vertebral bodies. The spinal canal and neural foramina are patent. The spinal ligaments are intact, without evidence of disruption or abnormal signal intensity. The spinal cord is normal in signal intensity and there is no evidence of cord contusion. There is no evidence of an extradural, intradural, extramedullary or intramedullary lesion. Visualized soft tissues are normal. IMPRESSION: Mild degenerative disc disease without evidence of canal or neuroforaminal stenosis. No signal abnormality to suggest demyelinating lesion. ACT 112: Negative or not required by law. Electronically signed by: Anibal Molina M.D. 04/07/2022 8:03 PM Code Status & VTE Plan Code Status Full code VTE Prophylaxis Plan VTE Prophylaxis will be ordered: Yes PG Care Time/CCT Total # of Minutes Spent Total Time Spent with Patient: Total time spent is greater than 50% in coordination of care (as documented) at patient's floor/unit and/or counseling patient: Coding Level of Care Code INT OBSERVATION CARE 70M LVL 3 Diagnoses Acute Lyme disease A69.20 Left-sided thoracic back pain M54.6 Constipation K59.00
[2022-04-08] MEDS ORDERED: KETOROLAC TROMETHAMINE 15 MG/ML VIAL IV PRN ×2 (01:14→09:21)
[2022-04-08] MEDS ORDERED: ACETAMINOPHEN 325 MG TAB PO PRN (01:14)
[2022-04-08] MEDS ORDERED: HYDROCODONE/ACETAMOPHEN 5/325MG TAB PO PRN ×2 (01:14→09:21)
[2022-04-08] MEDS ORDERED: ONDANSETRON INJ 2 MG/ML 2 ML VIAL IV PRN (01:14)
[2022-04-08] MEDS ORDERED: HYDROCODONE/ACETAMOPHEN 5/325MG TAB PO ONE (02:09)
[2022-04-08] MEDS ORDERED: ONDANSETRON INJ 2 MG/ML 2 ML VIAL ONE (02:10)
[2022-04-08] MEDS ORDERED: bisacodyL 10 MG SUPP PR STA (02:26)
[2022-04-08] MEDS ORDERED: bisacodyL 10 MG SUPP PR PRN (02:26)
[2022-04-08] MEDS: LACTATED RINGER'S 1,000 ML IV SCH ×2 (04:07→10:58)
[2022-04-08 06:29] LABS: Appearance Urine Clear (Clear); Bilirubin Urine Negative (Negative); Blood Urine Negative (Negative); Color Urine Yellow; Glucose Urine UA Negative (Negative); Ketones Urine Negative (Negative); Leukocyte Esterase Urine Negative (Negative); Nitrite Urine Negative (Negative); Protein Urine Negative (Negative); Specific Gravity Urine 1.009 (1.000-1.030); Urobilinogen Urine Negative (Negative)
--- NOTE | 2022-04-08 07:31 | Hospitalist Progress Note ---
Date of Service April 08, 2022 Assessment & Plan (1) Acute Lyme disease: Plan: Given systemic symptoms ongoing for several weeks and e/o resolving rashes - previously noted to be erythema migrans - opt to treat with doxycycline 100mg bid x 21 days total. Thankfully does not appear to have any features of secondary or tertiary lyme. Stop CFTX Stop IVF (2) Left-sided thoracic back pain: Plan: Negative MRI of thoracolumbar spine Negative CT scan of abdomen and pelvis Negative CTA chest for PE Very likely muscular/myofascial in nature - appreciable paralumbar spasm extending towards the inferiormost posterior ribs. Thankfully, scans and labwork have largely excluded many of the urgent/emergent visceral and spinal etiologies. Lyme likely contributing to proinflammatory state that is worsening this pain, but don't suspect it is the underlying etiology. Constipation may also be playing a role too --> ibuprofen 600mg tid maritza --> acetaminophen 1000mg tid maritza --> voltaren to lower inferiormost ribs q.i.d. maritza --> lidocaine patch qhs --> OMT performed 04/08 - will continue while here --> Magnesium 1g IV x 3 ordered -- can consider adding Valium prn --> [place] 5/325 for breakthrough pain --> OMT as outpatient will be recommended, could also benefit from PT Treat constipation and Lyme (3) Constipation: Plan: Miralax 51g now Miralax 17g tid - can increase to qid/ [id number] pending response Will consider stimulant laxiatives should response be suboptimal Hydration encouraged via PO Encouraged ambulation Plan: Code: full Dispo: MS PPX: SCDs, ambulate ad michael - if here for several more days can transition to pharmacologic Diet: Regular Admission and Anticipated Discharge Date Admission Date: April 08, 2022 Supervising Physician Co-Signing Physician Notes I personally examined the patient and verified all pelayo points of history and exam, discussed case, and agree with decision making with Dr Marcum. Left back painongoing for a few weeks. Mostly in her left back right at the margin of where her ribs come together with her spine. Radiates down the back a little bit. No clear worse with breathing, feels better with movement like walking and worse whenever she is sitting or laying for a while. No clear provoking factors, only thing that really alleviates it is ibuprofen. Also he adaches and temps consistent with Lyme. Also quite constipated Vitals noted, in general she is awake and alert pleasant no distress. HEENT normocephalic atraumatic mucous membranes moist. Breathing unlabored no accessory muscle use good effort. Skin shows no rashes no pallor or icterus. Left-sided mid to lower thoracic paraspinalsin the region of about the 6- 9found to be high tone/tender/decreased range of motiondirect myofascial, LAS, inhibitory pressureimproved. Left-sided rib cage a little bit restricted range of motion nonspecific more or less in mid inhalationrespiratory assist done to try to free this up some. Left back painappears to be biomechanicalOMT as above. Voltaren gel daily/lidocaine patch at bedtime, 4 g of magnesium to try to effect muscle relaxation, continue Tylenol and ibuprofen. Lymewhile I do not believe the Lyme is directly causing her back pain, certainly the overall myalgias that come with that are probably amplifying her biomechanical process. Her Lyme itself seems to be the headaches, rash, and temperaturescontinue doxycycline. ConstipationMiraLAX DVT prophylaxisHeparin subcu Subjective Pain improved this AM - wasn't an incredibly restful night, but better than previous nights. Pain seems to be L paralumbar area extending towards the ribs. Worse with prolonged sitting/lying - moving helps a bit. Denies nausea or vomiting. No CP/palpitations/SOB. Review of Systems Review of Systems: as per HPI Physical Exam Physical Exam: General: 66-year old female who is alert, oriented, and appears in no acute distress. HEENT: NCAT. - Eyes - Sclera are white, anicteric, and without injection. - Mouth - MMM - Neck - supple, no appreciable JVD Cardiac: Normal rate and regular rhythm; S1 and S2 present with no murmurs, rubs, or gallops. Pulmonary: Good respiratory effort with symmetric expansion of the chest. No use of accessory muscles. Lungs were clear to auscultation bilaterally with no crackles or wheezes. Abdominal: Normoactive bowel sounds. Abdomen was soft, nondistended, and non- tender to palpation. MSK: No vertebral point tenderness. +paralumbar spasm and TTP in the lower thoracic/upper lumbar area, extending towards the inferiormost posterior ribs. Extremities: Upper and lower extremities are warm and well perfused. No peripheral edema in the lower extremities bilaterally Psych: Well-developed, well-nourished, appropriately dressed for occasion. Behavior is cooperative and appropriate. Affect is WNL. Insight is appropriate. Results & Data Results & Data ([facility]) Vital Signs (Past 12 Hours) Vital Signs Temp Pulse Pulse Resp BP BP Pulse Ox 04/08/22 07:22 36.8 C 76 16 131/74 97 04/08/22 02:00 37.2 C 78 16 146/76 H 98 04/08/22 00:57 73 18 111/61 97 04/07/22 23:18 81 20 142/76 H 98 04/07/22 21:00 79 20 132/72 93 Resident Activity Tracking Resident Involvement: Resident Care Provided Care Provided: Adult Hospital Medicine
[2022-04-08 08:40] LABS: Basophils # (auto) 0.02 K/uL (0-0.2); Basophils % (auto) 0.2 %; Eosinophils # (auto) 0.18 K/uL (0-0.5); Eosinophils % (auto) 2.1 %; Hematocrit (blood only) 40.4 % (37-47); Hemoglobin 13.8 g/dL (12.0-16.0); Immature Granulocytes # (auto) 0.03 K/uL (0.00-0.02); Immature Granulocytes % (auto) 0.4 %; Lymphocytes % (auto) 16.5 %; Mean Corpuscular Hemoglobin 31.5 pg (25-34); Mean Corpuscular Hgb Conc 34.2 g/dL (32-36); Mean Corpuscular Volume 92.2 fL (80-100); Mean Platelet Volume 9.6 fL (7.4-10.4); Monocytes % (auto) 7.1 %; Neutrophils # (auto) 6.26 K/uL (1.4-6.5); Neutrophils % (auto) 73.7 %; Platelet Count 412 K/uL (130-400); RDW Coefficient of Variation 12.2 % (11.5-14.5); RDW Standard Deviation 41.4 fL (36.4-46.3); Red Blood Count 4.38 M/uL (4.2-5.4); White Blood Count 8.49 K/uL (4.8-10.8)
[2022-04-08 08:55] LABS: Albumin Level 3.4 gm/dl (3.4-5.0); BUN Creatinine Ratio 10.2 (10-20); Calcium 8.5 mg/dl (8.5-10.1); Creatinine Clr Calc Pharmacy 46.4 ml/min; Est GFR (African American) 80.5 ml/min; Est GFR (Non-African American) 69.4 ml/min; Phosphorus 3.5 mg/dl (2.5-4.9); Potassium 3.5 mmol/L (3.5-5.1)
[2022-04-08] MEDS ORDERED: cefTRIAXone SODIUM 1,000 MG in DEXTROSE 5% 50 ML IV SCH (09:00)
[2022-04-08] MEDS: DOXYCYCLINE HYCLATE 100 MG CAP PO SCH ×2 (09:17→20:18)
[2022-04-08] MEDS: HEPARIN SOD 5,000 UNIT/0.5 ML VIAL SQ SCH ×2 (09:17→20:17)
[2022-04-08] MEDS: MULTIVITAMIN TAB PO SCH (09:17)
[2022-04-08] MEDS: ACETAMINOPHEN 500 MG TAB PO SCH ×3 (09:56→20:18)
--- NOTE | 2022-04-08 10:07 | CT Scan Report ---
CT angio chest PE protocol CT DOSE: 214.89 mGycm HISTORY: 66 years-old Female with PE. Acute cough with chest and bilateral flank pain TECHNIQUE: Multiple CTA images of the chest were obtained after the intravenous administration of 120 ml Optiray. Coronal and sagittal MIPS were obtained from the axial data set and were submitted for review. All measurements were obtained according to NASCET criteria. A dose lowering technique was u tilized adhering to the principles of ALARA. COMPARISON: MRI thoracolumbar spine studies of same day, CT abdomen and pelvis of same day FINDINGS: CTA: Cardiomegaly. No thoracic aortic aneurysm or dissection. There is patency of the imaged great vessels . No pulmonary emboli are identified. The study however is mildly degraded by respiratory motion erin fact. CT CHEST: Unremarkable thyroid. No thoracic lymphadenopathy. No pneumothorax, pleural effusion, airspace consol idation or overt pulmonary edema. Several thin-walled cyst of the lung bases are redemonstrated. Mild dependent subsegmental bibasilar atelectasis. The central airways are patent. Unremarkable soft tiss ues. No acute fracture. Degenerative changes of the spine. 2.5 cm hypodense lesion within segment VII of the liver redemonstrated compatible with a hepatic veronica ngioma. 6 mm hypodensity of the central liver on image 4 is too small to characterize, likely a small cyst. Calcified granulomata of the spleen. IMPRESSION: No acute intrathoracic abnormality. No pulmonary emboli. ACT 112: Negative or not required by law. The above report was generated using voice recognition software. It may contain grammatical, syntax o r spelling errors. Electronically signed by: Israel Roy M.D. 04/08/2022 10:05 AM
[2022-04-08] MEDS: IBUPROFEN 600 MG TAB PO SCH ×2 (10:58→18:04)
[2022-04-08] MEDS: MAGNESIUM SULFATE / D5W 1 GM/100 ML BAG IV SCH ×3 (10:59→15:17)
[2022-04-08] MEDS ORDERED: LIDOCAINE 5% 1 PATCH TD SCH (11:00)
[2022-04-08] MEDS ORDERED: POLYETHYLENE (MIRALAX) 17 GM PACK PO STA (12:02)
[2022-04-08] MEDS: DICLOFENAC SOD 1% GEL 100 GM TUBE EXT SCH ×3 (12:19→20:19)
--- NOTE | 2022-04-08 13:18 | Electrocardiogram Report ---
Test Reason : Blood Pressure : / mmHG Vent. Rate : 075 BPM Atrial Rate : 075 BPM P-R Int : 134 ms QRS Dur : 076 ms QT Int : 362 ms P-R-T Axes : 069 071 039 degrees QTc Int : 404 ms Normal sinus rhythm Normal ECG When compared with ECG of 07-APR-2022 04:56, No significant change was found Confirmed by Jorge Kay ([id number]) on 04/08/2022 1:17:55 PM Referred By: REFERRED SELF Confirmed By:Jorge Kay
[2022-04-08] MEDS: POLYETHYLENE (MIRALAX) 17 GM PACK PO SCH ×2 (13:48→20:19)
--- NOTE | 2022-04-08 18:42 | Billing Data ---
Date of Service April 08, 2022 Coding Level of Care Code 50024 Subseq Obs Care Lvl 3
--- NOTE | 2022-04-08 18:43 | Hospitalist Progress Note ---
Date of Service April 08, 2022 Assessment & Plan (1) Somatic dysfunction of thoracic region: Plan: OMT done as in regular progress notes documentation Admission and Anticipated Discharge Date Admission Date: April 08, 2022 Results & Data Results & Data ([facility]) Vital Signs (Past 12 Hours) Vital Signs Temp Pulse Resp BP Pulse Ox 04/08/22 15:11 97.9 F 71 16 105/70 97 04/08/22 07:22 98.2 F 76 16 131/74 97 PG Care Time/CCT Total # of Minutes Spent Total Time Spent with Patient: Total time spent is greater than 50% in coordination of care (as documented) at patient's floor/unit and/or counseling patient: Coding Level of Care Code None Diagnoses Somatic dysfunction of thoracic region M99.02 CPT Codes Musculoskeletal - Musculoskeletal: 67018 Osteo Sravan Tr 1-2 Body regions ([id number])
[2022-04-08] MEDS: LIDOCAINE 5% 1 PATCH TD SCH (20:17)
[2022-04-09] MEDS: IBUPROFEN 600 MG TAB PO SCH ×3 (02:29→18:04)
[2022-04-09] MEDS ORDERED: KETOROLAC TROMETHAMINE 15 MG/ML VIAL IV ONE (05:22)
[2022-04-09] MEDS: ACETAMINOPHEN 500 MG TAB PO SCH ×3 (05:44→20:19)
--- NOTE | 2022-04-09 07:16 | Hospitalist Progress Note ---
Date of Service April 09, 2022 Assessment & Plan (1) Acute Lyme disease: Plan: Given systemic symptoms ongoing for several weeks and e/o resolving rashes - previously noted to be erythema migrans - opt to treat with doxycycline 100mg bid x 21 days total. Does not appear to have any features of secondary or tertiary lyme. (2) Left-sided thoracic back pain: Plan: Negative MRI of thoracolumbar spine Negative CT scan of abdomen and pelvis Negative CTA chest for PE Continue to think that this is very likely muscular/myofascial in nature - appreciable paralumbar spasm extending towards the inferiormost posterior ribs. Thankfully, scans and lab work have largely excluded many of the urgent/emergent visceral and spinal etiologies. Lyme likely contributing to proinflammatory state that is worsening this pain, but don't suspect it is the underlying etiology. Constipation may also be playing a role too --> ibuprofen 600mg tid maritza --> acetaminophen 1000mg tid maritza --> voltaren to lower inferiormost ribs q.i.d. maritza --> lidocaine patch qhs --> OMT performed 04/08 - will continue while here --> Add Valium 5mg qHS to aid with muscle spasm --> [place] 5/325 for breakthrough pain --> OMT as outpatient will be recommended, could also benefit from PT Treat constipation and Lyme (3) Constipation: Plan: Miralax 34g -- titrate prn Will consider stimulant laxiatives should response be suboptimal Hydration encouraged via PO Encouraged ambulation (4) Diplopia: Plan: New issue reported while here 04/08 - binocular diplopia with far-away stationary objects that resolves with covering either eye Neurologic exam without focal deficits during first assessment -- no e/o acute CVA; Suspect may be related to neurologic manifestations of Lyme. Also considered on DDX is opioid induced side effect, but considered less likely given how long it has been ongoing for just one dose of hydrocodone CFTX 2g IV q24h Plan: Code: full Dispo: MS PPX: SCDs, ambulate ad michael - if here for several more days can transition to pharmacologic Diet: Regular Admission and Anticipated Discharge Date Admission Date: April 08, 2022 Supervising Physician Co-Signing Physician Notes I personally examined the patient and verified all pelayo points of history and exam, discussed case, and agree with decision making with Dr Marcum. Back pain was reasonably bad last night, unable to really rest or sleep, but better today. On directed questioning, she agrees that it is currently at a 0. Constipation improved, stomach somewhat upset from the bowel regimen. Headache persists and she has had a degree of diplopia since last night. Vitals noted, in general she is awake and alert pleasant no distress. HEENT normocephalic atraumatic mucous membranes moist. Very mild medial turn to her right eye compared to the left, I tracks well but whenever looking straight forward or close to the nose, it points medially slightly more than the left. Otherwise EOMI. Diplopia is purely binocular, covering an eye resolve the double vision.. Left sided paraspinal musculature much more supple than yesterday, still a little bit high in tone not tenderLAS and some direct myofascial done with improvement furthering tissue texture changes. Left back painappears to be biomechanicalOMT, Voltaren gel daily/lidocaine patch at bedtime, continue Tylenol and ibuprofen, Valium at bedtime Lymewhile I do not believe the Lyme is directly causing her back pain, certainly the overall myalgias that come with that are probably amplifying her biomechanical process. Her Lyme itself seems to be the headaches, rash, and temperaturescontinue doxycycline. I suspect the diplopia is also manifestation of Lyme, we will also utilize ceftriaxone while she is inpatient, although on review of literature, it appears that doxycycline alone would likely suffice given time, but with my experience with more [employer] manifestations of Lyme, ceftriaxone has typically been used at least until time of discharge ConstipationMiraLAX has helped DVT prophylaxisHeparin subcu Subjective Unfortunately, not a great night. Reports that this is really the central theme - mostly ok and feeling better during the day, then gets worse and more spastic overnight. Does say that beginning sometime after 1700 (after daughter left), vision got "weird" -- reports feeling nauseous with focusing on certain things, and -- when looking at far-away objects -- sees double. Covering one eye or closing one eye resolves the diplopia. No vertigo. No issues moving arms/legs. No dysarthria or aphasia. Has gotten somewhat better in the morning. Does feel overall improvement since coming to the hospital with aid from her pain medications. Review of Systems Review of Systems: as per HPI Physical Exam Physical Exam: General: 66-year old female who is alert, oriented, and appears in no acute distress. HEENT: NCAT. - Eyes - Sclera are white, anicteric, and without injection. - Mouth - MMM - Neck - supple, no appreciable JVD Cardiac: Normal rate and regular rhythm; S1 and S2 present with no murmurs, rubs, or gallops. Pulmonary: Good respiratory effort with symmetric expansion of the chest. No use of accessory muscles. Lungs were clear to auscultation bilaterally with no crackles or wheezes. Abdominal: Normoactive bowel sounds. Abdomen was soft, nondistended, and non- tender to palpation. MSK: No vertebral point tenderness. +paralumbar spasm and TTP in the lower thoracic/upper lumbar area, extending towards the inferiormost posterior ribs. Improved compared to yesterday. Neuro: - Cranial Nerves: CN2-12 grossly intact. Note - no diplopia appreciated with objects in her room, but +noted when looking at immobile object approx 50 yards away out the window. - Motor: UE - Finger, wrist, elbow, and shoulder strength is 5/5 bilaterally. LE - Hip, knee, and ankle strength is 5/5 bilaterally. - [id number]: WNL b/l. No dysmetria. [id number]; WNL b/l. Extremities: Upper and lower extremities are warm and well perfused. No peripheral edema in the lower extremities bilaterally Psych: Well-developed, well-nourished, appropriately dressed for occasion. Behavior is cooperative and appropriate. Affect is WNL. Insight is appropriate. Results & Data Results & Data ([facility]) Vital Signs (Past 12 Hours) Vital Signs Temp Pulse Resp BP Pulse Ox 04/08/22 23:44 36.7 C 82 18 148/90 H 98 Resident Activity Tracking Resident Involvement: Resident Care Provided Care Provided: Adult [facility]
[2022-04-09] MEDS: DOXYCYCLINE HYCLATE 100 MG CAP PO SCH ×2 (07:31→20:18)
[2022-04-09] MEDS: MULTIVITAMIN TAB PO SCH (07:32)
[2022-04-09] MEDS: DICLOFENAC SOD 1% GEL 100 GM TUBE EXT SCH ×4 (07:32→20:18)
[2022-04-09] MEDS: POLYETHYLENE (MIRALAX) 17 GM PACK PO SCH ×3 (07:33→20:18)
[2022-04-09] MEDS: HEPARIN SOD 5,000 UNIT/0.5 ML VIAL SQ SCH ×2 (07:41→20:18)
[2022-04-09] MEDS ORDERED: diazePAM 5 MG TABLET PO PRN (10:19)
[2022-04-09 11:14] LABS: Basophils # (auto) 0.03 K/uL (0-0.2); Basophils % (auto) 0.5 %; Eosinophils # (auto) 0.12 K/uL (0-0.5); Eosinophils % (auto) 1.9 %; Hematocrit (blood only) 40.4 % (37-47); Hemoglobin 14.2 g/dL (12.0-16.0); Immature Granulocytes # (auto) 0.01 K/uL (0.00-0.02); Immature Granulocytes % (auto) 0.2 %; Lymphocytes # (auto) 1.59 K/uL (1.2-3.4); Lymphocytes % (auto) 25.7 %; Mean Corpuscular Hemoglobin 32.5 pg (25-34); Mean Corpuscular Hgb Conc 35.1 g/dL (32-36); Mean Corpuscular Volume 92.4 fL (80-100); Mean Platelet Volume 9.6 fL (7.4-10.4); Monocytes # (auto) 0.63 K/uL (0.11-0.59); Monocytes % (auto) 10.2 %; Neutrophils # (auto) 3.81 K/uL (1.4-6.5); Neutrophils % (auto) 61.5 %; Platelet Count 413 K/uL (130-400); RDW Coefficient of Variation 12.5 % (11.5-14.5); RDW Standard Deviation 42.3 fL (36.4-46.3); Red Blood Count 4.37 M/uL (4.2-5.4); White Blood Count 6.19 K/uL (4.8-10.8)
[2022-04-09 11:36] LABS: Albumin Level 3.6 gm/dl (3.4-5.0); BUN Creatinine Ratio 12.6 (10-20); Calcium 8.8 mg/dl (8.5-10.1); Creatinine Clr Calc Pharmacy 39.6 ml/min; Est GFR (African American) 66.5 ml/min; Est GFR (Non-African American) 57.4 ml/min; Magnesium 2.4 mg/dl (1.7-2.4); Phosphorus 3.1 mg/dl (2.5-4.9); Potassium 3.8 mmol/L (3.5-5.1)
[2022-04-09] MEDS ORDERED: MELATONIN 3 MG TAB PO PRN (15:38)
[2022-04-09] MEDS: cefTRIAXone SODIUM 2,000 MG in DEXTROSE 5% 50 ML IV SCH (17:12)
--- NOTE | 2022-04-09 17:58 | Billing Data ---
Date of Service April 09, 2022 Coding Level of Care Code 06718 Subseq Obs Care Lvl 3 Comment disregard [id number]
--- NOTE | 2022-04-09 17:58 | Billing Data ---
Date of Service April 09, 2022 Coding Level of Care Code 41096 Subseq Hosp Care Lvl 3
[2022-04-09] MEDS: LIDOCAINE 5% 1 PATCH TD SCH (20:17)
[2022-04-09] MEDS ORDERED: diazePAM 5 MG TABLET PO SCH (21:00)
[2022-04-10] MEDS: IBUPROFEN 600 MG TAB PO SCH ×3 (03:34→17:21)
[2022-04-10] MEDS: ACETAMINOPHEN 500 MG TAB PO SCH ×3 (05:44→21:41)
[2022-04-10 06:17] LABS: Basophils # (auto) 0.04 K/uL (0-0.2); Basophils % (auto) 0.6 %; Eosinophils # (auto) 0.22 K/uL (0-0.5); Eosinophils % (auto) 3.4 %; Hemoglobin 15.3 g/dL (12.0-16.0); Immature Granulocytes # (auto) 0.02 K/uL (0.00-0.02); Immature Granulocytes % (auto) 0.3 %; Lymphocytes # (auto) 1.78 K/uL (1.2-3.4); Lymphocytes % (auto) 27.2 %; Mean Corpuscular Hemoglobin 32.8 pg (25-34); Mean Corpuscular Hgb Conc 34.8 g/dL (32-36); Mean Corpuscular Volume 94.4 fL (80-100); Mean Platelet Volume 9.6 fL (7.4-10.4); Monocytes # (auto) 0.65 K/uL (0.11-0.59); Monocytes % (auto) 9.9 %; Neutrophils # (auto) 3.84 K/uL (1.4-6.5); Neutrophils % (auto) 58.6 %; Platelet Count 435 K/uL (130-400); RDW Coefficient of Variation 12.6 % (11.5-14.5); RDW Standard Deviation 42.6 fL (36.4-46.3); Red Blood Count 4.66 M/uL (4.2-5.4); White Blood Count 6.55 K/uL (4.8-10.8)
[2022-04-10 06:48] LABS: Albumin Level 3.8 gm/dl (3.4-5.0); BUN Creatinine Ratio 13.2 (10-20); Calcium 9.1 mg/dl (8.5-10.1); Creatinine Clr Calc Pharmacy 38.5 ml/min; Est GFR (African American) 64.3 ml/min; Est GFR (Non-African American) 55.4 ml/min; Magnesium 2.1 mg/dl (1.7-2.4); Phosphorus 3.4 mg/dl (2.5-4.9)
--- NOTE | 2022-04-10 07:15 | Hospitalist Progress Note ---
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 Given visual acuity disturbances, ?possible involvement of CN2 - though did not objectively assess today Reviewed current literature - Continue doxycycline for total of 21 days. Will continue CFTX while in hospital (2) Left-sided thoracic back pain: Plan: Negative MRI of thoracolumbar spine Negative CT scan of abdomen and pelvis Negative CTA chest for PE Continue to think that this is very likely muscular/myofascial in nature - appreciable paralumbar spasm extending towards the inferiormost posterior ribs. Thankfully, scans and lab work have largely excluded many of the urgent/emergent visceral and spinal etiologies. Lyme likely contributing to proinflammatory state that is worsening this pain, but don't suspect it is the underlying etiology. Constipation may also be playing a role too --> ibuprofen 600mg tid maritza --> acetaminophen 1000mg tid maritza --> voltaren to lower inferiormost ribs q.i.d. maritza --> lidocaine patch qhs --> OMT daily as able while here --> Reduce valium to 2mg (from 5) qHS given subjective reports of ++grogginess --> [place] 5/325 for breakthrough pain --> OMT as outpatient will be recommended, could also benefit from PT Treat constipation and Lyme (3) Constipation: Plan: Improving greatly Reduce from 54 tid to 27 daily Hydration encouraged via PO Encouraged ambulation (4) Diplopia: Plan: New issue reported while here (started 04/08, reported 04/09) - binocular diplopia with far-away stationary objects that resolves with covering either eye. Seems to be worsening day-by-day, also associated with subjective reports of diminished visual acuity. 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 As above - continue doxycycline for total of 21 days and CFTX while in hospital Will check MRI w/+w/o contrast to evaluate for secondary causes - vascular, inflammatory, structural/compressive Plan: Code: full Dispo: MS PPX: heparin Diet: Regular Admission and Anticipated Discharge Date Admission Date: April 08, 2022 Supervising Physician Co-Signing Physician Notes I personally examined the patient and verified all pelayo points of history and exam, discussed case, and agree with decision making with Dr Marcum. Back pain much improved. Diplopia probably a little bit worsebut an eye patch has helped. Bowels have been moving with frequency. Vitals noted, in general she is awake and alert pleasant no distress. HEENT normocephalic atraumatic mucous membranes moist. Breathing unlabored no accessory muscle use good effort. Eye patch on right eye. No other focal neurodeficits. Skin without rashes pallor or icterus. Left back painappears to be biomechanicalOMT done earlier in stay, no clear role needed today Voltaren gel daily/lidocaine patch at bedtime (if it stays on) continue Tylenol and ibuprofen, Valium at bedtime at a reduced dose due to the significant grogginess from the 5 mg Lymewhile I do not believe the Lyme is directly causing her back pain, certainly the overall myalgias that come with that are probably amplifying her biomechanical process. Continue ceftriaxone and doxycycline while inpatienton review of literature, it appears that Doxy alone should suffice for her [employer] Lyme, although discussed with patient and family that some expert opinion still favors ceftriaxonethey will consider options. Continue eye patching for comfortdiscussed that she should probably patch her left eye at least as often if not more often than the right given that the right is the one with the esotropia. Asking to try to set up ocular therapy if possible. ConstipationMiraLAX has helped, reduce DVT prophylaxisHeparin subcu Subjective NAEO. No further pain RX recorded passed Valium around 2000hr. At bedside, patient says there were some improvements and some setbacks with her progression. Regarding improvements - definitely less pain overnight, had to get up less compared to before. Was able to get a bit more sleep and do less walking around. Regarding setbacks - double vision worsening. Closer objects - maybe long term across the room, are now beginning to demonstrate horizontal double-images. Still resolves w/ eye closure. Having to close one eye more to feel comfortable. No dizziness. Also feels visual acuity is starting to become worse - L>R Valium was helpful but feeling extremely groggy this AM Also feels her constipation is near-resolved -- MiraLax almost working "too well" Review of Systems Review of Systems: as per HPI Physical Exam Physical Exam: General: 66-year old female who is alert, oriented, and appears in no acute distress. HEENT: NCAT. - Eyes - Sclera are white, anicteric, and without injection. - Mouth - MMM - Neck - supple, no appreciable JVD Cardiac: Normal rate and regular rhythm; S1 and S2 present with no murmurs, rubs, or gallops. Pulmonary: Good respiratory effort with symmetric expansion of the chest. No use of accessory muscles. Lungs were clear to auscultation bilaterally with no crackles or wheezes. Abdominal: Normoactive bowel sounds. Abdomen was soft, nondistended, and non- tender to palpation. MSK: No vertebral point tenderness. Less, but still persistent +paralumbar spasm and TTP in the lower thoracic/upper lumbar area, extending towards the inferiormost posterior ribs. Improved again compared to yesterday. Neuro: - Cranial Nerves: CN2 - PERRL. CN3, 4 - normal by my exam. CN6 - does appear to have some RIGHT sided esotropia when compared to the left - Motor: UE - Finger, wrist, elbow, and shoulder strength is 5/5 bilaterally. LE - Hip, knee, and ankle strength is 5/5 bilaterally. Extremities: Upper and lower extremities are warm and well perfused. No peripheral edema in the lower extremities bilaterally Psych: Well-developed, well-nourished, appropriately dressed for occasion. Behavior is cooperative and appropriate. Affect is WNL. Insight is appropriate. Results & Data Results & Data ([facility]) Vital Signs (Past 12 Hours) Vital Signs Temp Pulse Resp BP Pulse Ox 04/10/22 06:00 36.7 C 76 16 124/80 97 04/09/22 23:17 36.6 C 71 18 143/76 H 97 Resident Activity Tracking Resident Involvement: Resident Care Provided Care Provided: Adult [facility]
[2022-04-10] MEDS: cefTRIAXone SODIUM 2,000 MG in DEXTROSE 5% 50 ML IV SCH (09:29)
[2022-04-10] MEDS: DOXYCYCLINE HYCLATE 100 MG CAP PO SCH ×2 (09:30→20:24)
[2022-04-10] MEDS: HEPARIN SOD 5,000 UNIT/0.5 ML VIAL SQ SCH ×2 (09:30→20:24)
[2022-04-10] MEDS: MULTIVITAMIN TAB PO SCH (09:30)
[2022-04-10] MEDS: DICLOFENAC SOD 1% GEL 100 GM TUBE EXT SCH ×4 (09:30→20:23)
[2022-04-10] MEDS: POLYETHYLENE (MIRALAX) 17 GM PACK PO SCH (10:47)
[2022-04-10] MEDS ORDERED: LORazepam 0.5 MG in SYRINGE 0.25 ML IV PRN (11:17)
[2022-04-10] MEDS ORDERED: GADOBUTROL 65ML VIAL IV ONE (13:17)
--- NOTE | 2022-04-10 13:32 | Magnetic Resonance Report ---
MR brain MS wo/w con CLINICAL HISTORY: new-onset diplopia, positive lyme serologies COMPARISON STUDY: No previous studies for comparison. TECHNIQUE: Utilizing a 1.5 Jillian magnet and dedicated coil, multiplanar, multiecho imaging of the bra in was performed pre and postcontrast administration. Intravenous injection of 4.5 cc of Gadavist was uneventful. Thin cut FLAIR imaging was performed. FINDINGS: There are no foci of restricted diffusion to suggest acute infarct. No acute intracranial h emorrhage, midline shift or mass effect is present. Brain volume is normal. Ventricular system is nor mal. Basal cisterns are patent. There are no extra axial collections. Flow-voids for the major intrac ranial vessels are present. There is no intracranial mass or pathologic enhancement. There are 2 tiny white matter T2 hyperintense foci within the right frontal lobe. These measure up to 2 mm. Otherwise , no parenchymal signal abnormality is present. Orbits are unremarkable. Calvarial signal is normal. No evidence for sinusitis. Small amount of fluid within the right mastoid air cells is noted. IMPRESSION: 1. No acute intracranial findings. 2. No intracranial mass or pathologic enhancement. 3. Two tiny white matter T2 hyperintense foci within the right frontal lobe which are of doubtful sig nificance. Essentially, normal MRI of the brain. 4. Small amount of right mastoid fluid. ACT 112: Negative or not required by law. Electronically signed by: Greg Aguilar M.D. 04/10/2022 1:29 PM
--- NOTE | 2022-04-10 19:28 | Billing Data ---
Date of Service April 10, 2022 Coding Level of Care Code 73885 Subseq Hosp Care Lvl 3
[2022-04-10] MEDS: LIDOCAINE 5% 1 PATCH TD SCH (20:26)
[2022-04-10] MEDS ORDERED: diazePAM 2 MG TABLET PO SCH (21:00)
[2022-04-11] MEDS: IBUPROFEN 600 MG TAB PO SCH ×2 (03:11→11:22)
[2022-04-11] MEDS: ACETAMINOPHEN 500 MG TAB PO SCH ×2 (05:48→14:06)
[2022-04-11] MEDS: DICLOFENAC SOD 1% GEL 100 GM TUBE EXT SCH ×2 (09:00→14:06)
[2022-04-11] MEDS: DOXYCYCLINE HYCLATE 100 MG CAP PO SCH (09:01)
[2022-04-11] MEDS: HEPARIN SOD 5,000 UNIT/0.5 ML VIAL SQ SCH (09:01)
[2022-04-11] MEDS: MULTIVITAMIN TAB PO SCH (09:01)
--- NOTE | 2022-04-11 09:32 | Discharge Summary ---
Date of Service April 11, 2022 Admission HPI Per Admitting Provider The patient is a 66-year-old female with a past medical history of osteopenia, atypical ductal hyperplasia of breast, atypical lobular hyperplasia of right breast, and lumbar strain. She reports that the symptoms began a few weeks ago, prior to going on a recent trip. She had also presented with a headache at that time, which had improved with a course of steroids. Work-up in the emergency department include the following imaging: CT scan of abdomen and pelvis showed a small amount of fluid within the pelvis/. Follow-up CT scan abdomen pelvis with contrast showed a 2.5 cm segment subcapsular lesion representing hemangioma, calcified granulomas within the spleen. This evening MRI of lumbar spine and thoracic spine were both negative. CT angiography chest PE protocol was negative for PE. Due to the intractability of the pain, patient was referred for admission for further assessment and pain control. Admission Exam Per Admitting Provider The patient is awake, alert and oriented 3, well developed and well nourished, normocephalic and atraumatic, lying in bed and in no acute distress. HEENT--PERRL, EOMI, mucous membranes and oropharynx dry. Neck--supple. No JVD. No bruits. Thyroid normal, trachea midline, no adenopathy. Heart--normal S1 and S2. No murmurs, rubs or gallops. Lungs--clear bilaterally, no respiratory distress, no accessory muscle use. Abdomen--normal bowel sounds and soft. Nontender. Nondistended, no hernias or masses, no organomegaly. Extremities--no cyanosis or clubbing. No edema. There are good distal pulses b/l. Dermatologic--rash as noted in ED records Neurologic--cranial nerves II through XII grossly intact. Rheumatologic--normal range of motion. Psychiatric--normal affect. 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 HEENT: NCAT. - Eyes - Sclera are white, anicteric, and without injection. - Mouth - MMM - Neck - supple, no appreciable JVD Cardiac: Normal rate and regular rhythm; S1 and S2 present with no murmurs, rubs, or gallops. Pulmonary: Good respiratory effort with symmetric expansion of the chest. No use of accessory muscles. Lungs were clear to auscultation bilaterally with no crackles or wheezes. Abdominal: Normoactive bowel sounds. Abdomen was soft, nondistended, and non- tender to palpation. MSK: No vertebral point tenderness. Less, but still persistent +paralumbar spasm and TTP in the lower thoracic/upper lumbar area, extending towards the inferiormost posterior ribs. Improved again compared to yesterday. Neuro: - Cranial Nerves: CN2 - PERRL. CN3, 4 - normal by my exam. CN6 - does appear to have some RIGHT sided esotropia when compared to the left - Motor: UE - Finger, wrist, elbow, and shoulder strength is 5/5 bilaterally. LE - Hip, knee, and ankle strength is 5/5 bilaterally. Extremities: Upper and lower extremities are warm and well perfused. No peripheral edema in the lower extremities bilaterally Psych: Well-developed, well-nourished, appropriately dressed for occasion. Behavior is cooperative and appropriate. Affect is WNL. Insight is appropriate. Discharge Data Allergies Allergy/AdvReac Type Severity Reaction Status Date / Time Penicillins Allergy Intermediate rash/hives Verified 04/07/22 21:32 Consultations 04/07/22 20:36 ED Decision to Admit Stat Ordered Studies 04/07/22 14:59 MR lumbar spine wo con Stat CLINICAL HISTORY: left sided pain with anterior radiation for 1.5 weeks, no inciting injury TECHNIQUE: Multiplanar sequences through the lumbar spine were obtained, without intravenous contrast. Comparison: Comparison is made to CT abdomen pelvis 04/07/2022 FINDINGS: The alignment is anatomical. Degenerative changes are noted in the discs and vertebral bodies. L1-L2: No significant abnormality. L2-L3: Degenerative changes are seen. There is a broad-based posterior disc bulge with mild bilateral neural foraminal stenosis and no canal stenosis. L3-L4: Broad-based posterior disc bulge is seen with no significant stenosis. L4-L5: No significant abnormality. L5-S1: No significant abnormality. The spinal ligaments are intact, without evidence of disruption or abnormal signal intensity. The spinal cord is normal in signal intensity and there is no evidence of cord contusion. There is no evidence of an extradural, intradural, extramedullary or intramedullary lesion. Visualized soft tissues are normal. IMPRESSION: No significant canal stenosis, mild bilateral neuroforaminal stenosis. No T2 hyperintensity to suggest demyelinating disease. 04/07/22 15:27 MR thoracic spine wo con Stat CLINICAL HISTORY: pain left-sided spinal pain with anterior radiation TECHNIQUE: Multiplanar sequences through the thoracic spine were obtained, without intravenous contrast. Comparison: None available at the time of this dictation. FINDINGS: The alignment is anatomical. Degenerative changes are noted in the discs and vertebral bodies. The spinal canal and neural foramina are patent. The spinal ligaments are intact, without evidence of disruption or abnormal signal intensity. The spinal cord is normal in signal intensity and there is no evidence of cord contusion. There is no evidence of an extradural, intradural, extramedullary or intramedullary lesion. Visualized soft tissues are normal. IMPRESSION: Mild degenerative disc disease without evidence of canal or neuroforaminal stenosis. No signal abnormality to suggest demyelinating lesion. 04/07/22 21:48 CT angio chest PE protocol Urgent 2.5 cm hypodense lesion within segment VII of the liver redemonstrated compatible with a hepatic hemangioma. 6 mm hypodensity of the central liver on image 4 is too small to characterize, likely a small cyst. Calcified granulomata of the spleen. IMPRESSION: No acute intrathoracic abnormality. No pulmonary emboli. 04/10/22 10:18 MR brain MS wo/w con Urgent IMPRESSION: 1. No acute intracranial findings. 2. No intracranial mass or pathologic enhancement. 3. Two tiny white matter T2 hyperintense foci within the right frontal lobe which are of doubtful significance. Essentially, normal MRI of the brain. 4. Small amount of right mastoid fluid. Hospital Course (1) Acute Lyme disease: Given systemic symptoms ongoing for several weeks and e/o resolving rashes - previously noted to be erythema migrans As below - binocular diplopia, visual acuity changes - suspect c/w early disseminated lyme with neurologic manifestation. Reviewed current literature - Continue doxycycline for total of 28 days (end 05/06/22). Also given CFTX while here. (2) Left-sided thoracic back pain: Negative MRI of thoracolumbar spine Negative CT scan of abdomen and pelvis Negative CTA chest for PE Continue to think that this is very likely muscular/myofascial in nature - appreciable paralumbar spasm extending towards the inferiormost posterior ribs. Thankfully, scans and lab work have largely excluded many of the urgent/emergent visceral and spinal etiologies. Lyme likely contributing to proinflammatory state that is worsening this pain, but don't suspect it is the underlying etiology. Constipation may also be playing a role too --> ibuprofen 600mg tid maritza --> acetaminophen 1000mg tid maritza --> voltaren to lower inferiormost ribs q.i.d. maritza --> lidocaine patch qhs --> OMT daily as able while here --> Valium 2mg qHS x 10 days for spasm, sleep --> [place] 5/325 for breakthrough pain --> OMT as outpatient will be recommended, could also benefit from PT Treat constipation and Lyme (3) Constipation: Improved while here with daily MiraLax Hydration encouraged via PO Encouraged ambulation (4) Diplopia: New issue reported while here (started 04/08, reported 04/09) - binocular diplopia with far-away stationary objects that resolved with covering either eye. Worsened day-by-day and became associated w/ diminished visual acuity. On exam - there does seem to be some esotropia with her RIGHT eye, which could suggest a CN6 palsy that could explain her diplopia. No other FNDs. Suspect sec to early disseminated Lyme, possibly CN6 / CN2 disturbance. As above - continue doxycycline for total of 21 days and CFTX while in hospital. MRI thankfully without associated changes that would explain this. 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 early for appointment) Diet: Regular Addtl Attending Provider Instructions: You were seen in [facility] for evaluation of severe low back pain. Upon your arrival here, you underwent several tests to determine the cause your symptoms, including multiple series of radiologic scans. Thankfully, none of these demonstrated any findings to suggest bony or nerve-related abnormality. During your work-up however, you were noted to have positive Lyme testwhich seem consistent with some of your symptoms over the last several weeks, as well as the rashes you noticed on your lower body. We worked extensively on controlling your back pain. Based on multiple assessments, we primarily suspect that your pain is muscular in nature. Given the area in which you experience pain contains some of the strongest muscles in the body, it is unfortunate - but not surprising - that the severity of the pain was as notable as it was. You responded well to scheduled pain medicines in addition to nighttime Valium, which serves as both a muscle relaxer and a sleep aid. You also greatly benefited from OMT, which we recommend considering continu ation in the outpatient setting if desired. While here, you also developed vision issues. You underwent an MRI of the brain, which thankfully did not show any findings that would explain your sympto ms (2 tiny spots, which likely represent "artifact" were noticed incidentally and are of doubtful significance, but are worth repeating a brain scan in 6 to 8 weeks to ensure resolution/appropriate follow-up). Based on your work-up and positive Lyme tests/history, we suspect that your vision difficulties are likely due to neurologic manifestations of Lyme disease. Thankfully, this can Be treated with oral doxycycline -- you tolerated the beginning part of this antibiotic's course, alongside an IV antibiotic, very well. We will continue this at discharge for 25 days. As discussed, we will also attempt to schedule you with ocular physical therapy to help with strengthening/retraining your eye muscles. Like we discussed, it will probably take several weeks before your double vision resolves. Upon your discharge, please note the following medication changes/additions/deletions: Doxycycline, 100 mg twice daily (AM and PM), until 05/06/22 (please note that doxycycline can cause sun sensitivity - please wear long sleeves, a hat, and wear ample sunscreen if out in the sun) Ibuprofen 600 mg, 3 times daily (every 8 hours), with food, for the next 5 days Acetaminophen 650 mg, 3 times daily (every 8 hours) for the next 5 days -- continue longer if needed Valium 2 mg before bed for the next 5 days, then take half a tablet for the next 5 days after that. Apply Voltaren gel to affected area on back, 3-4 times daily, for the next 5 to 10 days, longer if needed This can be bought [id number] if you require more after your prescription runs out Consider applying a lidocaine patch at night Please follow-up with your primary care physician within 1 week to review this visit. At that time, please review all medications. In the interim, if you experience worsening headache, vision changes, numbness, tingling, extreme weakness, chest pain, palpitations, shortness of breath, please seek medical attention; if your symptoms are severe, please report to the ER for immediate evaluation. It was a pleasure for caring for you while here, we wish you all the best in your recovery. Addtl Psychology Tech Provider Instructions: A referral has been placed to [facility] in [place], on your behalf. This office offers vision therapy. They should be in touch to get you scheduled for a consultation. Their office ph# is [phone]. Pending Studies at Discharge: No Stand-Alone Forms: My [facility] EUDOWEB, Smoking Cessation Medications and DC Order Prescriptions: New doxycycline hyclate 100 mg Capsule 100 mg PO BID 17 Days Qty: 34 RF: 0 acetaminophen [Tylenol Extra Strength] 500 mg Tablet 1,000 mg PO Q8 5 Days Qty: 30 RF: 0 ibuprofen 600 mg Tablet 600 mg PO Q8H 5 Days Qty: 15 RF: 0 diclofenac sodium [Voltaren Arthritis Pain] 1 % Gel 2 g EXT QID 10 Days Qty: 150 RF: 0 famotidine [Pepcid] 20 mg tablet 20 mg PO DAILY PRN (Reason: reflux/heartburn) Qty: 30 RF: 0 ondansetron 4 mg tablet,disintegrating 4 mg PO Q8H PRN (Reason: nausea and vomiting) Qty: 10 RF: 0 diazepam [Valium] 2 mg tablet 2 mg PO HS PRN (Reason: sleep) Qty: 10 RF: 0 Continued multivitamin Tablet 1 tab PO QAM RF: 0 Prempro 0.625-2.5 mg tablet 0.5 tab PO QAM RF: 0 Discontinued doxycycline hyclate 100 mg tablet 100 mg PO BID 21 Days Qty: 42 RF: 0 Discharge Orders: Discharge Order (Routine); Ordered 04/11/22 Ordered By: Yonis Marcum Admission Data Admit Date/Time: 04/10/22 15:38 Attending Provider: Yonis Villagomez Admit Provider: Eugenio Nicole Primary Care Provider: Adam Bear V. Other Providers: Eugenio Nicole Other Interventions: Discharge Summary Assessment (RN) Last Done: 04/11/22 12:24 Supervising Physician Co-Signing Physician Notes I personally examined the patient and verified all pelayo points of history and exam, discussed case, and agree with decision making with Dr Marcum. Slept better double vision ongoing feels up to going home. Vitals noted, in general she is awake and alert pleasant no distress. HEENT normocephalic atraumatic mucous membranes moist. Breathing unlabored no accessory muscle use good effort. Eye patch on left eye. No other focal neurodeficits. Skin without rashes pallor or icterus. Left back painappears to be biomechanicalOMT done earlier in stay, no clear role needed today. Stable for home. Tylenol/ibuprofen as needed. As needed OMT follow-updiscussed who she could follow-up with for this. Continue Valium at bedtime for a short period of time. Lymewhile I do not believe the Lyme is directly causing her back pain, certainly the overall myalgias that come with that are probably amplifying her biomechanical process. Was on ceftriaxone and doxycycline while inpatienton review of literature, it appears that Doxy alone should suffice for her [employer] Lyme, although discussed with patient and family that some expert opinion still favors ceftriaxonebut they both felt comfortable with doxycycline alone. Continue eye patching for comfortdiscussed that she should probably patch her left eye at least as often if not more often than the right given that the right is the one with the esotropia. Discussed risks of falling/etc. with depth perception being off when patching eye. Ocular therapy being set up. Discussed potential side effects with doxycycline (emphasis on sun sensitivity and esophagitis) ConstipationMiraLAX has helped, does not appear to have a need for anything further DVT prophylaxisHeparin subcu utilized while here Stable for home, otherwise as above
[2022-04-11] MEDS: cefTRIAXone SODIUM 2,000 MG in DEXTROSE 5% 50 ML IV SCH (09:53)
[2022-04-11] MEDS ORDERED: POLYETHYLENE (MIRALAX) 17 GM PACK PO SCH (14:00)
--- NOTE | 2022-04-11 17:42 | Billing Data ---
Date of Service April 11, 2022 Coding Level of Care Code D/C DAY MANAGEMENT <30 MINS
== END 2022-04-11 15:44 | disposition home or self-care (01) | DRG 869 ==
LOC: 3W 12:55 → ED 12:55 → SUATTDRO 04-08 00:11 → 3W 04-08 00:57